=== PATIENT | male | born 1970 | race Hispanic/Latino ===

== ENCOUNTER 2017-12-18 17:48 | Emergency (ER) | payer OTHER ==
[~2017-12-18] VITALS: Ht 175.3 cm; Wt 84.0 kg
[~2017-12-18 17:48] MED LIST: PAIN RELIE PO
[2017-12-18] MEDS ORDERED: GENTAMICIN15 ML/BTL OU (19:24)
[2017-12-18] MEDS ORDERED: (None)3.5 GM OU (19:24)
[2017-12-18 19:30] VITALS: BP 134/77
== END 2017-12-18 19:30 | disposition home or self-care (01) | DRG 125 ==
LOC: ED 17:48
DX: H10.9 Unspecified conjunctivitis (principal); H57.8 Other specified disorders of eye and adnexa